=== PATIENT | male | born 1990 | race African-American/Black ===

== ENCOUNTER 2018-12-13 17:04 | Emergency (ER) | payer SELFPAY ==
[~2018-12-13] VITALS: Ht 185.4 cm; Wt 71.2 kg
[2018-12-13 17:26] VITALS: BP 113/61
[2018-12-13] MEDS ORDERED: POLY10DR OD (18:00)
--- NOTE | 2018-12-13 18:01 | PHYS DOC ---
Past Medical History Past Medical History: No Pertinent History (MULU WEBB APRN) Past Surgical History: No Surgical History (MULU WEBB APRN) Alcohol Use: Occasionally Drug Use: None (MULU WEBB APRN) Adult General Chief Complaint Chief Complaint: EYE PROBLEMS HPI HPI Patient is a 28 year old AA male who presents to the ER with complaints of medial lower left eyelid pain, redness, and swelling for the last 3 days without any known injury. Pt denies any vision changes. States that his eye has been watery and that in the mornings it has been crusted shut. Pt denies any fever, cough, sore throat, runny nose, or other complaints. He states the eye is fine if he doesn't touch it , he currently denies pain. (MULU WEBB APRN) Review of Systems Review of Systems Constitutional: Denies fever or chills [] Eyes: See HPI HENT: Denies nasal congestion or sore throat [] Respiratory: Denies cough or shortness of breath [] Cardiovascular: No additional information not addressed in HPI [] GI: Denies abdominal pain, nausea, vomiting, or diarrhea [] Integument: Denies rash or skin lesions [] Neurologic: Denies headache, focal weakness or sensory changes [] (MULU WEBB APRN) Allergies Allergies Allergies Coded Allergies Type Severity Reaction Last Updated Verified No Known Drug Allergies 12/13/18 No (NADIA GUO MD) Physical Exam Physical Exam Constitutional: Well developed, well nourished, no acute distress, non-toxic appearance. [] HENT: Normocephalic, atraumatic, bilateral external ears normal, oropharynx moist, no oral exudates, nose normal. [] Eyes: PERRLA, EOMI, conjunctiva normal, no discharge; erythema and swelling consistent with a stye noted to medial left lower eyelid, no drainage or pustule noted. . [] Neck: Normal range of motion, no stridor. [] Cardiovascular:Heart rate regular rhythm, no murmur [] Lungs & Thorax: Bilateral breath sounds clear to auscultation [] Skin: Warm, dry, no rash. [] Extremities: No cyanosis, ROM intact Neurologic: Alert and oriented X 3, normal motor function, normal sensory function, no focal deficits noted. [] Psychologic: Affect normal, judgement normal, mood normal. [] (MULU WEBB APRN) Current Patient Data Vital Signs Vital Signs Date Time Temp Pulse Resp B/P (MAP) Pulse Ox O2 Delivery O2 Flow Rate FiO2 12/13/18 17:26 98.6 67 16 113/61 (78) 97 Room Air 98.6 (NADIA GUO MD) EKG EKG [] (MULU WEBB APRN) Radiology/Procedures Radiology/Procedures [] (MULU WEBB APRN) Course & Med Decision Making Course & Med Decision Making Pertinent Labs and Imaging studies reviewed. (See chart for details) Dx: L eye stye [] (MULU WEBB APRN) Course & Med Decision Making Staff Physician Addendum: I was working in the ER during the course of this patient's visit. I was available for consultation as needed, but I was not directly involved in the care of this patient. (NADIA GUO MD) Dragon Disclaimer Dragon Disclaimer This electronic medical record was generated, in whole or in part, using a voice recognition dictation system. (MULU WEBB APRN) Departure Departure Impression: Primary Impression: Hordeolum of left lower eyelid Disposition: 01 HOME, SELF-CARE Condition: STABLE Referrals: NO PCP (PCP) Patient Instructions: Sty Additional Instructions: Fill the prescription(s) and use as directed. Apply warm, moist washcloths to eyes needed for comfort. Recommend use of baby shampoo to wash eyelids. Follow- up with her primary care doctor in 1-2 days. Return to the emergency room if your symptoms worsen. Scripts Polymyxin B Sulf/Trimethoprim (POLYTRIM EYE DROPS) 10 Ml Drops 2 DROP OD Q6HRS for 5 Days, #10 ML 0 Refills Prov: MULU WEBB APRN 12/13/18 Problem Qualifiers Primary Impression: Hordeolum of left lower eyelid Hordeolum type: unspecified type Qualified Codes: H00.015 - Hordeolum externum left lower eyelid MULU WEBB APRN Dec 13, 2018 18:00 NADIA GUO MD Dec 14, 2018 11:35
== END 2018-12-13 18:07 | disposition home or self-care (01) ==
LOC: ER 17:04
DX: H00.015 Hordeolum externum left lower eyelid (principal)
CPT/HCPCS: 99283

== ENCOUNTER 2019-12-13 09:08 | Emergency (ER) | payer SELFPAY ==
[~2019-12-13] VITALS: Ht 185.4 cm; Wt 70.4 kg
[~2019-12-13 09:08] MED LIST: POLY10DR OD
[2019-12-13 09:32] VITALS: BP 135/92
--- NOTE | 2019-12-13 10:02 | PHYS DOC ---
Past Medical History Past Medical History: No Pertinent History Past Surgical History: No Surgical History Smoking Status: Former Smoker Alcohol Use: Occasionally Drug Use: None Adult General Chief Complaint Chief Complaint: FINGER INJURY [facility] Patient is a 29 year old male who presents with R third digit pain after he slammed it in the door yesterday at work. The patient states the end of his finger has been hurting since that time. He reports his pain is 6/10 in severity and sharp. He also states that he was putting an christie wrap on the finger yesterday that did not help. He denies taking any medication so far for the pain. Complete ROS were reviewed and found to be within normal limits, except as documented in the [facility] Allergies Allergies Allergies Coded Allergies Type Severity Reaction Last Updated Verified No Known Drug Allergies 12/13/18 No Physical Exam Physical Exam Constitutional: Well developed, well nourished, no acute distress, non-toxic appearance. [] HENT: Normocephalic, atraumatic, bilateral external ears normal, oropharynx moist, no oral exudates, nose normal. [] Eyes: PERRLA, EOMI, conjunctiva normal, no discharge. [] Skin: Warm, dry, no erythema, no rash. [] Extremities: R 3rd digit has bruising on the nail and tenderness at the distal end near the first joint. Neurovascular status is intact. Neurologic: Alert and oriented X 3, normal motor function, normal sensory function, no focal deficits noted. [] Psychologic: Affect normal, judgement normal, mood normal. [] Current Patient Data Vital Signs Vital Signs Date Time Temp Pulse Resp B/P (MAP) Pulse Ox O2 Delivery O2 Flow Rate FiO2 12/13/19 09:32 97.6 60 18 135/92 (106) 100 Room Air 97.6 EKG EKG [] Radiology/Procedures Radiology/Procedures [] Course & Med Decision Making Course & Med Decision Making Pertinent Labs and Imaging studies reviewed. (See chart for details) A medical screening exam was performed on this patient and the patient does not appear to be having a medical emergency. His symptoms are not of sufficient severity and within reasonable medical probability it is unlikely the absence of immediate medical attention would result in placing the health of the individual (or, with respect to a woman, the health of the woman or her unborn child) in serious jeopardy, serious impairment to bodily functions, or serious dysfunction of any bodily organ or part. If , the patient is not in labor Dragon Disclaimer Dragon Disclaimer This electronic medical record was generated, in whole or in part, using a voice recognition dictation system. Departure Departure Impression: Primary Impression: Encounter for medical screening examination Disposition: HOME, SELF-CARE Condition: STABLE Referrals: NO PCP (PCP) Patient Instructions: Medical Screening Exam Additional Instructions: Thank you for visiting [facility]. We appreciate you trusting us with your care. If any additional problems come up don't hesitate to return to visit us. Please follow up with your primary care provider so they can plan additional care if needed and know about the problem that you had. If symptoms worsen come back to the Emergency Department. Any concerning symptoms that start such as chest pain, shortness of air, weakness or numbness on one side of the body, running high fevers or any other concerning symptoms return to the ER. NICOLE SIERRA APRN Dec 13, 2019 10:02
== END 2019-12-13 10:20 | disposition home or self-care (01) ==
LOC: ER 09:08
DX: S60.031A Contusion of right middle finger without damage to nail, initial encounter (principal); F17.200 Nicotine dependence, unspecified, uncomplicated; W23.0XXA Caught, crushed, jammed, or pinched between moving objects, initial encounter; Y93.89 Activity, other specified; Y92.89 Other specified places as the place of occurrence of the external cause; Y99.0 Civilian activity done for income or pay
CPT/HCPCS: 99281

== ENCOUNTER 2020-06-13 09:05 | Emergency (ER) | payer OTHER ==
[~2020-06-13] VITALS: Ht 185.4 cm; Wt 71.3 kg
[2020-06-13 09:14] VITALS: BP 119/62
--- NOTE | 2020-06-13 09:42 | RAD ---
HAND LEFT 3V History: Reason: pain to tip of left index finger. pt states drilling a screw through finger / Spl. Instructions: / History: Technique: 3 views left hand. Comparison: None. Findings: Normal alignment. No fracture. Soft tissues unremarkable. Impression: 1. No acute osseous abnormality. Electronically signed by: Roger Pozo DO (06/13/2020 9:39 AM) [id number]
--- NOTE | 2020-06-13 09:44 | PHYS DOC ---
Past Medical History Past Medical History: No Pertinent History Past Surgical History: No Surgical History Smoking Status: Current Some Day Smoker Alcohol Use: Occasionally Drug Use: None General Adult EDM: Chief Complaint: FINGER INJURY HPI: HPI: Patient is a 29-year-old previously healthy male who presents to the emergency room after cutting his finger on a nail. Patient states that he was hammering things together together and the nail coming through and hitting his finger. Unknown last tetanus shot. Denies any other injuries. Review of Systems: Review of Systems: General: Denies fever, chills, sweats, fatigue Eyes: Denies drainage, blurred vision, eye redness HENT: Denies rhinorrhea, sore throat, earache Respiratory: Denies cough, shortness of breath, wheezing Cardiac: Denies edema, palpitations, chest pain GI: Denies abdominal pain, Nausea, vomiting MSK: Denies back pain, neck pain Skin: Denies rash, jaundice Neuro: Denies headache, dizziness Psychiatric: Denies SI/HI Heart Score: Risk Factors: Risk Factors: DM, Current or recent (<one month) smoker, HTN, HLP, family history of CAD, obesity. Risk Scores: Score 0 - 3: 2.5% MACE over next 6 weeks - Discharge Home Score 4 - 6: 20.3% MACE over next 6 weeks - Admit for Clinical Observation Score 7 - 10: 72.7% MACE over next 6 weeks - Early Invasive Strategies Current Medications: Current Medications Medications (Trade) Dose Ordered Sig/Amirah Start Time Stop Time Status Last Admin Dose Admin Diphtheria/ Tetanus/Acell Pertussis (ADACEL TDap SYRINGE) 0.5 ml ONCE ONCE 06/13/20 09:45 06/13/20 09:46 UNV Allergies: Allergies: Allergies Coded Allergies Type Severity Reaction Last Updated Verified No Known Drug Allergies 12/13/18 No Physical Exam: PE: General: Awake, alert, NAD. Well Nourished, well hydrated. Cooperative HEENT: Atraumatic, EOMI, PERRL, airway patent, moist oral mucosa Neck: Supple, trachea midline Respiratory: CTA bilaterally, normal effort, no wheezing/crackles CV: RRR, no murmur, cap refill <2 GI: Soft, nondistended, nontender, no masses MSK: No obvious deformities Skin: Warm, dry, 1 cm laceration to L index finger at tip Neuro: A&O x3, speech NL, sensory and motor grossly intact, no focal deficits Psych: Normal affect, normal mood, not suicidal or homicidal Current Patient Data: Vital Signs: Vital Signs Date Time Temp Pulse Resp B/P (MAP) Pulse Ox O2 Delivery O2 Flow Rate FiO2 06/13/20 09:14 98.1 72 18 119/62 (81) 98 Room Air 98.1 EKG: EKG: [] Radiology/Procedures: Radiology/Procedures: [] Course & Med Decision Making: Course & Med Decision Making Pertinent Labs and Imaging studies reviewed. (See chart for details) Patient is 29-year-old male presents to the emergency room with laceration. Wound was cleaned and closed with glue. Tetanus was updated. Patient's test results and vitals while in the ED were fully reviewed and discussed with the patient. Patient is stable and at this time does not need admission to the hospital. We have discussed strict return precautions and the importance of following up with their Primary Care Physician. Patient stated understanding and was given an opportunity to ask any questions. Patient is in agreement with plan. Dragon Disclaimer: Dragon Disclaimer: This electronic medical record was generated, in whole or in part, using a voice recognition dictation system. Departure Departure Impression: Primary Impression: Laceration of finger Disposition: HOME, SELF-CARE Condition: STABLE Referrals: NO PCP (PCP) Patient Instructions: Fingertip Laceration Justicifation of Admission Dx: Justifications for Admission: Justification of Admission Dx: No MIKE WYNN MD Jun 13, 2020 09:44
[2020-06-13] MEDS ORDERED: DIPH,PERTUSS(ACELL),TET VAC/PF 0.5 ML SYRINGE. VAX IM ONE (09:45)
== END 2020-06-13 10:06 | disposition home or self-care (01) ==
LOC: ER 09:05
DX: S61.211A Laceration without foreign body of left index finger without damage to nail, initial encounter (principal); F17.200 Nicotine dependence, unspecified, uncomplicated; W45.0XXA Nail entering through skin, initial encounter; Y93.89 Activity, other specified; Y92.89 Other specified places as the place of occurrence of the external cause; Y99.8 Other external cause status
CPT/HCPCS: 12001; 73130; 90471; 90715; 99283

== ENCOUNTER 2021-02-08 08:20 | Emergency (ER) | payer OTHER ==
[~2021-02-08] VITALS: Ht 185.4 cm; Wt 75.2 kg
[2021-02-08 10:24] LABS: BILIRUBIN,URINE NEGATIVE (NEG); COLOR,URINE YELLOW; NITRITE,URINE NEGATIVE (NEG); PH,URINE 5.5 (<5.0-8.0); PROTEIN,URINE NEGATIVE (NEG-TRACE)
[2021-02-08 10:30] LABS: CLARITY,URINE HAZY
[2021-02-08 10:31] LABS: WBC,URINE TNTC /HPF (0-4)
[2021-02-08 10:32] LABS: BACTERIA,URINE FEW /HPF (0-FEW)
--- NOTE | 2021-02-08 10:54 | PHYS DOC ---
Past Medical History Past Medical History: No Pertinent History Past Surgical History: No Surgical History Smoking Status: Current Every Day Smoker Additional Information: 3-6 cigarettes daily Alcohol Use: Occasionally Drug Use: None General Adult EDM: Chief Complaint: SEXUALLY TRANSMITTED DISEASE HPI: HPI: Patient is a 30 year old male who presents with white penile discharge and burning with urination for the last 5 to 7 days. He denies fever, abdominal pain, testicular pain, back pain, nausea, vomiting or fever. He denies any pain at this time. Review of Systems: Review of Systems: Constitutional: Denies fever or chills. [] Eyes: Denies change in visual acuity. [] HENT: Denies nasal congestion or sore throat. [] Respiratory: Denies cough or shortness of breath. [] Cardiovascular: Denies chest pain or edema. [] GI: Denies abdominal pain, nausea, vomiting, bloody stools or diarrhea. [] : Denies dysuria. + burning with urination. +penile discharge[] Musculoskeletal: Denies back pain or joint pain. [] Integument: Denies rash. [] Neurologic: Denies headache, focal weakness or sensory changes. [] Endocrine: Denies polyuria or polydipsia. [] Lymphatic: Denies swollen glands. [] Psychiatric: Denies depression or anxiety. [] Heart Score: C/O Chest Pain: No Risk Factors: Risk Factors: DM, Current or recent (<one month) smoker, HTN, HLP, family history of CAD, obesity. Risk Scores: Score 0 - 3: 2.5% MACE over next 6 weeks - Discharge Home Score 4 - 6: 20.3% MACE over next 6 weeks - Admit for Clinical Observation Score 7 - 10: 72.7% MACE over next 6 weeks - Early Invasive Strategies Current Medications: Current Medications Medications (Trade) Dose Ordered Sig/Amirah Start Time Stop Time Status Last Admin Dose Admin Azithromycin (Zithromax) 1,000 mg 1X ONCE 02/08/21 11:15 02/08/21 11:16 Ceftriaxone Sodium (Rocephin Im) 500 mg 1X ONCE 02/08/21 11:15 02/08/21 11:16 Allergies: Allergies: Allergies Coded Allergies Type Severity Reaction Last Updated Verified No Known Drug Allergies 02/08/21 No Physical Exam: PE: Constitutional: Well developed, well nourished, no acute distress, non-toxic appearance. [] HENT: Normocephalic, atraumatic, bilateral external ears normal, oropharynx moist, no oral exudates, nose normal. [] Eyes: PERRLA, EOMI, conjunctiva normal, no discharge. [] Neck: Normal range of motion, no tenderness, supple, no stridor. [] Cardiovascular:Heart rate regular rhythm, no murmur [] Lungs & Thorax: Bilateral breath sounds clear to auscultation [] Abdomen: Bowel sounds normal, soft, no tenderness, no masses, no pulsatile masses. [] Skin: Warm, dry, no erythema, no rash. [] Back: No tenderness, no CVA tenderness. [] Extremities: No tenderness, no cyanosis, no clubbing, ROM intact, no edema. [] Neurologic: Alert and oriented X 3, normal motor function, normal sensory function, no focal deficits noted. [] Psychologic: Affect normal, judgement normal, mood normal. Normal Physical Exam[] Current Patient Data: Labs: Laboratory Tests Test 02/08/21 08:32 Urine Collection Type Unknown Urine Color Yellow Urine Clarity Hazy Urine pH 5.5 (<5.0-8.0) Urine Specific [place] 1.025 (1.000-1.030) Urine Protein Negative mg/dL (NEG-TRACE) Urine Glucose (UA) Negative mg/dL (NEG) Urine Ketones (Stick) Negative mg/dL (NEG) Urine Blood Moderate (NEG) Urine Nitrite Negative (NEG) Urine Bilirubin Negative (NEG) Urine Urobilinogen Dipstick 1.0 mg/dL (0.2 mg/dL) Urine Leukocyte Esterase Large (NEG) Urine RBC 11-20 /HPF (0-2) Urine WBC Tntc /HPF (0-4) Urine Squamous Epithelial Cells Few /LPF Urine Bacteria Few /HPF (0-FEW) Urine Mucus Mod /LPF Vital Signs: Vital Signs Date Time Temp Pulse Resp B/P (MAP) Pulse Ox O2 Delivery O2 Flow Rate FiO2 02/08/21 10:44 98.2 60 16 121/72 (88) 96 Room Air 98.2 EKG: EKG: [] Radiology/Procedures: Radiology/Procedures: [] Course & Med Decision Making: Course & Med Decision Making Pertinent Labs and Imaging studies reviewed. (See chart for details) See HPI. Alert and oriented x4. Speaks in full clear sentences. Skin pink warm and dry. No cva tenderness. Abdomen is soft and nontender. No Penile sore or discharge seen. Patient does not have a primary care provider or insurance and patient is less likely to buy a prescription for Doxycycline and so Azithromycin is ordered with Rocephin the ED. No testicular tenderness or swelling. [] Dragon Disclaimer: Dragon Disclaimer: This electronic medical record was generated, in whole or in part, using a voice recognition dictation system. Departure Departure Impression: Primary Impression: Sexually transmitted disease (STD) Disposition: 01 DC HOME SELF CARE/HOMELESS Condition: STABLE Referrals: NO PCP (PCP) Patient Instructions: Sexually Transmitted Disease, [id number] Additional Instructions: Follow up with health department in 10 days to make sure the STD is gone. If you continue to have continued problems go to [facility]. SONIYA NICHOLAS APRN Feb 08, 2021 10:54
[2021-02-08] MEDS ORDERED: AZITHROMYCIN 250 MG TABLET. PO ONE (11:15)
[2021-02-08] MEDS ORDERED: cefTRIAXone IM 500 MG VIAL. IM ONE (11:15)
[2021-02-08 11:33] VITALS: BP 135/87
== END 2021-02-08 11:33 | disposition home or self-care (01) ==
LOC: ER 08:20
DX: A64 Unspecified sexually transmitted disease (principal); R30.9 Painful micturition, unspecified; F17.210 Nicotine dependence, cigarettes, uncomplicated
CPT/HCPCS: 81001; 87086; 87491; 87591; 96372; 99283; J0696